=== PATIENT | female | born 1965 | race Caucasian/White ===

== ENCOUNTER 2016-11-11 07:58 | Emergency (ER) | payer OTHER ==
[~2016-11-11] VITALS: Ht 170.2 cm; Wt 100.0 kg
[2016-11-11 08:02] VITALS: BP 184/98; PULSE 68; RESP 20; TEMP 98.9; O2SAT 100
[2016-11-11] MEDS ORDERED: SODIUM CHLOR 0.9% 1000 ML INJ 1,000 ML IV SCH (08:24)
[2016-11-11 08:26] VITALS: O2SAT 100
[2016-11-11] MEDS ORDERED: SODIUM CHLORIDE 0.9% FLUSH 10 ML FLUSH IV FLUSH PRN (08:30)
[2016-11-11] MEDS ORDERED: MORPHINE SULFATE 8 MG/ML INJ IV PUSH ONE (08:30)
[2016-11-11] MEDS ORDERED: ONDANSETRON HCL 4 MG/2 ML VIAL IVP ONE (08:30)
[2016-11-11 08:44] LABS: AUTOMATED NEUTROPHIL # 8.2 TH/MM3 (1.8-7.7); BASOPHIL # 0.1 TH/MM3 (0-0.2); BASOPHIL % 0.9 % (0.0-2.0); EOSINOPHIL # 0.2 TH/MM3 (0-0.4); EOSINOPHIL % 2.2 % (0.0-4.0); HEMATOCRIT 38.2 % (35.0-46.0); HEMO FLAGS DIFF FINAL; LYMPH % 11.1 % (9.0-44.0); LYMPHOCYTE # 1.1 TH/MM3 (1.0-4.8); MEAN CELL VOLUME 80.3 FL (80.0-100.0); MEAN CORPUSCULAR HEMOGLOBIN 27.7 PG (27.0-34.0); MEAN CORPUSCULAR HGB CONC 34.5 % (32.0-36.0); MONO % 3.4 % (0.0-8.0); NEUT % 82.4 % (16.0-70.0); PLATELET COUNT 215 TH/MM3 (150-450); RED BLOOD COUNT 4.75 MIL/MM3 (4.00-5.30); RED CELL DISTRIBUTION WIDTH 12.9 % (11.6-17.2); WHITE BLOOD COUNT 9.9 TH/MM3 (4.0-11.0)
[2016-11-11 08:59] LABS: ANION GAP 6 MEQ/L (5-15); AST (GOT) 13 U/L (15-37); BICARBONATE 28.6 MEQ/L (21.0-32.0); BLOOD UREA NITROGEN 16 MG/DL (7-18); CHLORIDE 105 MEQ/L (98-107); GLOMERULAR FILTRATION RATE 55 ML/MIN (>89); POTASSIUM 3.4 MEQ/L (3.5-5.1); SODIUM (NA) 140 MEQ/L (136-145)
[2016-11-11 09:02] LABS: ALKALINE PHOSPHATASE 100 U/L (45-117); ALT (GPT) 17 U/L (10-53); TOTAL BILIRUBIN ADULT 0.4 MG/DL (0.2-1.0)
--- NOTE | 2016-11-11 09:50 | RADRPT ---
EXAM DATE/TIME: 11/11/2016 08:59 [place] COMPARISON: No previous studies available for comparison. INDICATIONS : Right upper quadrant pain. MEDICAL HISTORY : Heart murmur. Asthma. Fibromyalgia. Arthritis. SURGICAL HISTORY : Tonsillectomy. Hysterectomy. Bladder sling. ENCOUNTER: Initial ACUITY: 1 day PAIN SCORE: 7/10 LOCATION: Bilateral upper quadrant MEASUREMENTS: LIVER: 17.8 cm length COMMON DUCT: 2 mm RIGHT KIDNEY: 8.6 x 4.2 x 3.5 cm FINDINGS: Liver is borderline enlarged. Multiple small gallbladder polyps or non-mobile gallstones noted. No bi liary ductal dilatation. Right kidney unremarkable. No free fluid. No pericholecystic fluid. CONCLUSION: 1. Multiple small non-mobile gallstones or small polyps. No biliary ductal dilatation. No free fluid. Bill Arora MD on November 11, 2016 at 9:44 Board Certified Radiologist. This report was verified electronically.
[2016-11-11] MEDS ORDERED: PERC5TAB12 PO (10:01)
--- NOTE | 2016-11-11 10:01 | PD ---
HPI Chief Complaint: Abdominal Pain Time Seen by Provider: 08:18 Travel History International Travel<30 days: No Contact w/Intl Traveler<30days: No Traveled to known affect area: No History of Present Illness HPI 51-year-old female arrives complaining of right upper quadrant pain for about a month. She reports undergoing an ultrasound 5 days ago however the results are unknown to her. She was supposed to see her primary care provider today in order to establish follow-up with a general surgeon. She vomited twice at home and therefore came to the ER. Her temperature at home was 99.5. Her appetite has been decreased today. She reports eating a steak dinner last night. Patient states she woke up with the pain this morning. No urinary complaint. PFSH Past Medical History Arthritis: Yes Asthma: Yes Cardiovascular Problems: Yes (hamzah ) Fibromyalgia: Yes ?: Not : 3 Para: 3 Past Surgical History Hysterectomy: Yes Tonsillectomy: Yes Other Surgery: Yes (bladder sling ) Social History Alcohol Use: No Tobacco Use: No Substance Use: No Allergies-Medications (Allergen,Severity, Reaction): Coded Allergies: Aspirin (Verified Allergy, Unknown, 11/11/16) Sulfa (Verified Allergy, Unknown, 11/11/16) Reported Meds & Prescriptions Reported Meds & Active Scripts Active Percocet (Oxycodone-Acetaminophen) 5-325 mg Tab 2 Tab PO Q6H PRN Review of Systems Except as stated in HPI: all other systems reviewed are Neg General / Constitutional: No: Fever, Chills Gastrointestinal: Positive: Nausea, Vomiting, Abdominal Pain Physical Exam Narrative GENERAL: 51-year-old female well-nourished well-developed no acute distress SKIN: Focused skin assessment warm/dry. HEAD: Atraumatic. Normocephalic. EYES: Pupils equal and round. No scleral icterus. No injection or drainage. ENT: No nasal bleeding or discharge. Mucous membranes pink and moist. NECK: Trachea midline. No JVD. CARDIOVASCULAR: Regular rate and rhythm. No murmur appreciated. RESPIRATORY: No accessory muscle use. Clear to auscultation. Breath sounds equal bilaterally. GASTROINTESTINAL: Soft. Minimal tenderness to deep palpation in the right upper quadrant. MUSCULOSKELETAL: No obvious deformities. No clubbing. No cyanosis. No edema. NEUROLOGICAL: Awake and alert. No obvious cranial nerve deficits. Motor grossly within normal limits. Normal speech. PSYCHIATRIC: Appropriate mood and affect; insight and judgment normal. Data Data Last Documented VS Vital Signs Date Time Temp Pulse Resp B/P Pulse Ox O2 Delivery O2 Flow Rate FiO2 11/11/16 08:27 16 11/11/16 08:26 100 Room Air 11/11/16 08:02 98.9 68 184/98 Vital signs reviewed Orders Complete Blood Count With Diff (11/11/16 08:24) Comprehensive Metabolic Panel (11/11/16 08:24) Lipase (11/11/16 08:24) Us Abdomen Gallbladder (11/11/16 ) Iv Access Insert/Monitor (11/11/16 08:24) Ecg Monitoring (11/11/16 08:24) Oximetry (11/11/16 08:24) Ondansetron Inj (Zofran Inj) (11/11/16 08:30) Sodium Chlor 0.9% 1000 Ml Inj (Ns 1000 M (11/11/16 08:24) Sodium Chloride 0.9% Flush (Ns Flush) (11/11/16 08:30) Morphine Inj (Morphine Inj) (11/11/16 08:30) Labs Laboratory Tests Test 11/11/16 08:30 White Blood Count 9.9 TH/MM3 Red Blood Count 4.75 MIL/MM3 Hemoglobin 13.2 GM/DL Hematocrit 38.2 % Mean Corpuscular Volume 80.3 FL Mean Corpuscular Hemoglobin 27.7 PG Mean Corpuscular Hemoglobin 34.5 % Concent Red Cell Distribution Width 12.9 % Platelet Count 215 TH/MM3 Mean Platelet Volume 8.6 FL Neutrophils (%) (Auto) 82.4 % Lymphocytes (%) (Auto) 11.1 % Monocytes (%) (Auto) 3.4 % Eosinophils (%) (Auto) 2.2 % Basophils (%) (Auto) 0.9 % Neutrophils # (Auto) 8.2 TH/MM3 Lymphocytes # (Auto) 1.1 TH/MM3 Monocytes # (Auto) 0.3 TH/MM3 Eosinophils # (Auto) 0.2 TH/MM3 Basophils # (Auto) 0.1 TH/MM3 CBC Comment DIFF FINAL Differential Comment Sodium Level 140 MEQ/L Potassium Level 3.4 MEQ/L Chloride Level 105 MEQ/L Carbon Dioxide Level 28.6 MEQ/L Anion Gap 6 MEQ/L Blood Urea Nitrogen 16 MG/DL Creatinine 1.06 MG/DL Estimat Glomerular Filtration 55 ML/MIN Rate Random Glucose 109 MG/DL Calcium Level 8.6 MG/DL Total Bilirubin 0.4 MG/DL Aspartate Amino Transf 13 U/L (AST/SGOT) Alanine Aminotransferase 17 U/L (ALT/SGPT) Alkaline Phosphatase 100 U/L Total Protein 7.3 GM/DL Albumin 3.9 GM/DL Lipase 171 U/L MDM Medical Decision Making Medical Screen Exam Complete: Yes Emergency Medical Condition: Yes Differential Diagnosis Constipation, Gastritis, Acute Cholecystitis, Biliary Colic, Pancreatitis, MEJIA , Hepatitis, Bowel Obstruction, Cystitis, Mesenteric Ischemia, AAA, Appendicitis , Renal Stone/Hydronephrosis, GERD, perforated viscous Narrative Course CBC & BMP Diagram 11/11/16 08:30 LFTs and Lipase normal RUQ Sono: 1. multiple small non-mobile gallstones or small polyps. No biliary ductal dilatation. No free fluid. The patient is resting comfortably and feels better, is alert and in no distress. The patients results and examination findings were discussed. The repeat examination is unremarkable and benign. The history, exam, diagnostic testing, and current condition do not suggest any significant pathology to warrant further testing, continued ED treatment, admission, or surgical evaluation at this point. The vital signs have been stable. The patient does not have uncontrollable pain, intractable vomiting, or other significant symptoms. The patient's condition is stable and appropriate for discharge. The patient will pursue further outpatient evaluation with a primary care physician or other designated or consulting physician as indicated in the discharge instructions. The patient expressed understanding and was agreeable with this plan. Diagnosis Primary Impression: Biliary colic Referrals: Jcarlos Villanueva MD 2 days Additional Instructions: You have a choice when it comes to health care, and we are glad that you chose [facility]. Hopefully, we have met your expectations on today's visit. You are welcome to return to [facility] at any time, as we are committed to meeting the health care needs of our community. Med/Other Pt SpecificInfo: Prescription(s) given Scripts Oxycodone-Acetaminophen (Percocet)5-325 mg Tab2 Tab PO Q6H PRN (PAIN SCALE 6 TO 10) #20 TAB Ref 0 Prov:Raul Mckeon MD 11/11/16 Disposition: 01 DISCHARGE HOME Condition: Stable Raul Mckeon MD November 11, 2016 10:01
[2016-11-11 10:43] VITALS: RESP 18
== END 2016-11-11 11:10 | disposition home or self-care (01) ==
LOC: NEPE 07:58
DX: K80.50 Calculus of bile duct without cholangitis or cholecystitis without obstruction (principal); M79.7 Fibromyalgia; J45.909 Unspecified asthma, uncomplicated
CPT/HCPCS: 76705; 80053; 83690; 85025; 96361; 96374; 96375; 99285; J2270; J2405; J7030